=== PATIENT | female | born 1960 | race Caucasian/White ===

== ENCOUNTER 2016-09-15 19:44 | Emergency (ER) | payer MEDICAID ==
[~2016-09-15] VITALS: Ht 170.2 cm; Wt 91.0 kg
[~2016-09-15 19:44] MED LIST: AMLO10TA2 PO; HYDR25TA6 PO
[2016-09-15 21:01] VITALS: BP 166/76
== END 2016-09-15 21:04 | disposition home or self-care (01) ==
LOC: ED 20:58
DX: H60.11 Cellulitis of right external ear (principal); H60.311 Diffuse otitis externa, right ear; H69.81 Other specified disorders of Eustachian tube, right ear; R09.81 Nasal congestion
CPT/HCPCS: 99283

== ENCOUNTER 2016-10-01 16:58 | Emergency (ER) | payer MEDICAID ==
[~2016-10-01] VITALS: Ht 170.2 cm; Wt 90.7 kg
[2016-10-01 17:01] VITALS: BP 159/95
== END 2016-10-01 18:39 | disposition home or self-care (01) ==
LOC: ED 17:28
DX: H60.12 Cellulitis of left external ear (principal); Z88.6 Allergy status to analgesic agent
CPT/HCPCS: 99283

== ENCOUNTER 2016-12-25 04:30 | Emergency (ER) | payer MEDICAID ==
[~2016-12-25] VITALS: Ht 170.2 cm; Wt 90.8 kg
[2016-12-25] MEDS ORDERED: LOSA25TA5 PO (04:56)
[2016-12-25] MEDS ORDERED: ASPIRIN 81 MG TABLET CHEW ONE (05:10)
[2016-12-25] MEDS ORDERED: ONDANSETRON 2MG/ML, 2ML ONE (05:10)
[2016-12-25] MEDS ORDERED: KETOROLAC 30 MG/1 ML ONE (05:10)
[2016-12-25] MEDS ORDERED: KETOROLAC 30 MG/1 ML IVPush ONE (05:30)
[2016-12-25] MEDS ORDERED: SODIUM CHLORIDE FLUSH 10ML SYR IVF ONE (05:30)
[2016-12-25] MEDS ORDERED: ASPIRIN 81 MG TABLET CHEW PO ONE (05:30)
[2016-12-25] MEDS ORDERED: ONDANSETRON 2MG/ML, 2ML IVPush ONE (05:30)
[2016-12-25 06:06] LABS: BLOOD UREA NITROGEN 27 mg/dL (7-18)
[2016-12-25 06:12] LABS: IS PT STATUS REG ER OR PRE ER? YES
[2016-12-25 06:40] VITALS: BP 123/73
== END 2016-12-25 06:42 | disposition home or self-care (01) ==
LOC: ED 06:30
DX: R07.89 Other chest pain (principal); I10 Essential (primary) hypertension; M79.7 Fibromyalgia; Z88.1 Allergy status to other antibiotic agents
CPT/HCPCS: 36415; 71010; 80048; 82040; 83880; 84484; 85025; 93005; 99285

== ENCOUNTER 2017-06-10 07:21 | Observation (INO) | payer MEDICAID ==
[~2017-06-10] VITALS: Ht 170.2 cm; Wt 92.5 kg
[~2017-06-10 07:21] MED LIST changes: +LOSA25TA5 PO
[2017-06-10] MEDS ORDERED: FAMOTIDINE 20 MG/2 ML IVP ONE (08:00)
[2017-06-10] MEDS ORDERED: SODIUM CHLORIDE 0.9% 1,000ML IVBOLUS ONE (08:00)
[2017-06-10] MEDS ORDERED: SODIUM CHLORIDE FLUSH 10ML SYR IVF ONE (08:00)
[2017-06-10] MEDS ORDERED: ONDANSETRON 2MG/ML, 2ML IVPush ONE ×2 (08:00→10:30)
[2017-06-10] MEDS ORDERED: ONDANSETRON 2MG/ML, 2ML ONE ×3 (08:09→11:40)
[2017-06-10] MEDS ORDERED: FAMOTIDINE 20 MG/2 ML ONE (08:10)
[2017-06-10 08:14] LABS: BASOPHILS # (AUTO) 0.03 x10^3/uL (0-0.1); BASOPHILS % (AUTO) 0 % (0-1); EOSINOPHILS # (AUTO) 0.03 x10^3/uL (0-0.4); EOSINOPHILS % (AUTO) 0 % (1-7); LYMPHOCYTES # (AUTO) 0.92 x10^3/uL (1-3.4); LYMPHOCYTES % (AUTO) 6 % (22-44); MD NO; MEAN CORPUSCULAR HEMOGLOBIN 28.5 pg (27.0-34.8); MEAN CORPUSCULAR HGB CONC 33.1 g/dL (32.4-35.8); MEAN CORPUSCULAR VOLUME 86.2 fL (80-100); MEAN PLATELET VOLUME 9.3 fL (7.4-10.4); MONOCYTES # (AUTO) 0.65 x10^3/uL (0.2-0.8); MONOCYTES % (AUTO) 5 % (2-9); NEUTROPHILS # (AUTO) 12.61 x10^3/uL (1.8-6.8); NEUTROPHILS % (AUTO) 89 % (42-75); PLATELET COUNT 297 x10^3/uL (130-400)
[2017-06-10] MEDS ORDERED: LOSA25TA5 PO (08:17)
[2017-06-10] MEDS ORDERED: NAPR220C2 PO (08:17)
[2017-06-10 08:27] LABS: ALANINE AMINOTRANSFERASE 54 U/L (12-78); ANION GAP 9 mmol/L (5-15); CALCIUM 9.3 mg/dL (8.5-10.1); CHLORIDE 104 mmol/L (98-107); CREATININE 0.99 mg/dL (0.55-1.02)
[2017-06-10 08:29] LABS: ALKALINE PHOSPHATASE 185 U/L (45-117); BILIRUBIN,TOTAL 0.5 mg/dL (0.2-1.0); TOTAL PROTEIN 8.4 g/dL (6.4-8.2)
[2017-06-10 10:23] LABS: HCG UR SG 1.015 (1.003-1.030); MICROSCOPIC NOT IND
[2017-06-10 10:26] LABS: CULTURE INDICATED? NO
[2017-06-10 10:53] LABS: CLOSTRIDIUM DIFFICILE ANTIGEN NEGATIVE; CLOSTRIDIUM DIFFICILE TOXIN NEGATIVE (Negative)
[2017-06-10 11:33] LABS: AMPHETAMINE SCREEN, URINE Positive (Negative); BARBITURATE SCREEN, URINE Negative (Negative); BENZODIAZEPINE SCREEN, URINE Negative (Negative); CANNABINOID SCREEN, URINE Negative (Negative); COCAINE SCREEN, URINE Negative (Negative); METHADONE SCREEN, URINE Negative (Negative); OPIATE SCREEN, URINE Negative (Negative)
[2017-06-10] MEDS ORDERED: ENALAPRILAT 1.25 MG/ML, 2ML IVPush PRN (13:30)
[2017-06-10] MEDS ORDERED: ONDANSETRON ODT 4 MG PO PRN (13:30)
[2017-06-10] MEDS ORDERED: ACETAMINOPHEN 325 MG TABLET PO PRN (13:30)
[2017-06-10] MEDS ORDERED: hydrALAzine 20 MG/ML, 1ML IVPush PRN (13:30)
[2017-06-10] MEDS ORDERED: ZOLPIDEM 5MG TABLET PO PRN (13:30)
[2017-06-10] MEDS ORDERED: LABETALOL 5MG/ML, 20ML IVPush PRN (13:30)
[2017-06-10] MEDS ORDERED: morphine SULFATE 10 MG/ML, 1ML IVPush PRN (13:30)
[2017-06-10 14:10] LABS: FREE T4 (FREE THYROXINE) 1.32 ng/dL (0.76-1.46); THYROID STIMULATING HORMONE 4.65 mIU/L (0.358-3.740)
[2017-06-10 14:20] VITALS: BP 162/92
[2017-06-10] MEDS: ONDANSETRON 2MG/ML, 2ML IVPush PRN ×2 (15:10→22:58)
[2017-06-10] MEDS: ENOXAPARIN 40 MG/0.4 ML SQ SCH (15:10)
[2017-06-10] MEDS: NS + 20MEQ KCL 1,000 ML IV SCH (15:10)
[2017-06-10] MEDS ORDERED: ALBUTEROL SULFATE 2.5 MG/3 ML NPPB PRN (15:30)
[2017-06-10 16:55] VITALS: BP 162/92
[2017-06-10 20:10] VITALS: BP 142/82
[2017-06-11] MEDS: NS + 20MEQ KCL 1,000 ML IV SCH (00:15)
[2017-06-11 02:46] VITALS: BP 134/77
[2017-06-11 05:15] LABS: BASOPHILS # (AUTO) 0.01 x10^3/uL (0-0.1); BASOPHILS % (AUTO) 0 % (0-1); EOSINOPHILS # (AUTO) 0.01 x10^3/uL (0-0.4); EOSINOPHILS % (AUTO) 0 % (1-7); LYMPHOCYTES # (AUTO) 0.98 x10^3/uL (1-3.4); LYMPHOCYTES % (AUTO) 16 % (22-44); MD NO; MEAN CORPUSCULAR HEMOGLOBIN 29.3 pg (27.0-34.8); MEAN CORPUSCULAR HGB CONC 33.8 g/dL (32.4-35.8); MEAN CORPUSCULAR VOLUME 86.8 fL (80-100); MEAN PLATELET VOLUME 9.7 fL (7.4-10.4); MONOCYTES # (AUTO) 0.28 x10^3/uL (0.2-0.8); MONOCYTES % (AUTO) 4 % (2-9); NEUTROPHILS # (AUTO) 5.05 x10^3/uL (1.8-6.8); NEUTROPHILS % (AUTO) 80 % (42-75); PLATELET COUNT 194 x10^3/uL (130-400); RED CELL DISTRIBUTION WIDTH 13.4 % (9.6-15.2)
[2017-06-11 05:23] LABS: CHLORIDE 106 mmol/L (98-107)
[2017-06-11 05:38] LABS: ANION GAP 8 mmol/L (5-15); CALCIUM 8.3 mg/dL (8.5-10.1); CREATININE 0.92 mg/dL (0.55-1.02)
[2017-06-11] MEDS ORDERED: PANTOPRAZOLE 40 MG IV IVPush SCH (07:30)
[2017-06-11 08:15] VITALS: BP 121/72
[2017-06-11] MEDS ORDERED: MAGNESIUM SULFATE 1 GM in SODIUM CHLORIDE 0.9% 50 ML IV ONE (08:30)
[2017-06-11] MEDS ORDERED: POTASSIUM PHOSPHATE 22 MEQ in SODIUM CHLORIDE 0.9% 500 ML IV ONE (08:30)
[2017-06-11] MEDS ORDERED: LOSARTAN 25MG TABLET PO SCH (09:00)
[2017-06-11 11:20] LABS: RAPID INFLUENZA A Negative (Negative); RAPID INFLUENZA B Negative (Negative)
[2017-06-11] MEDS: ENOXAPARIN 40 MG/0.4 ML SQ SCH (13:56)
[2017-06-11 14:00] VITALS: BP 114/69
== END 2017-06-11 17:33 | disposition home or self-care (01) ==
LOC: ED 08:57 → INTOOBSV 12:36 → EDIP 12:36 → 4WST 13:40 → UNDODISIN 06-11 17:33
PROVIDERS: ADMIT Family Medicine; ATTEND Family Medicine
DX: A08.4 Viral intestinal infection, unspecified (principal); E87.6 Hypokalemia; M79.7 Fibromyalgia; R09.02 Hypoxemia; I10 Essential (primary) hypertension; F15.20 Other stimulant dependence, uncomplicated; F12.10 Cannabis abuse, uncomplicated; H69.90 Unspecified Eustachian tube disorder, unspecified ear; H60.90 Unspecified otitis externa, unspecified ear
CPT/HCPCS: 36415; 71046; 74022; 80048; 80053; 80307; 81003; 81025; 83690; 83735; 84100; 84439; 84443; 85025; 87324; 87400; 89055; 93005; 96361; 96365; 96366; 96367; 96368; 96372; 96375; 96376; 99285; C9113; G0378; J1650; J2270; J2405; J3475; J3480; J7030; J7040; Q0162; 96374; S0028

== ENCOUNTER 2017-11-14 12:18 | Emergency (ER) | payer MEDICAID ==
[~2017-11-14] VITALS: Ht 170.2 cm; Wt 93.0 kg
[~2017-11-14 12:18] MED LIST changes: +NAPR220C2 PO
[2017-11-14 12:21] VITALS: BP 174/104
[2017-11-14] MEDS ORDERED: IBUPROFEN 200 MG TABLET ONE (12:47)
[2017-11-14] MEDS ORDERED: IBUPROFEN 200 MG TABLET PO ONE (13:00)
== END 2017-11-14 13:22 | disposition home or self-care (01) ==
LOC: ED 13:17
DX: S93.411A Sprain of calcaneofibular ligament of right ankle, initial encounter (principal); S93.491A Sprain of other ligament of right ankle, initial encounter; I10 Essential (primary) hypertension; Z90.49 Acquired absence of other specified parts of digestive tract; Z91.14 Patient's other noncompliance with medication regimen; W18.39XA Other fall on same level, initial encounter; Y93.89 Activity, other specified; Y92.096 Garden or yard of other non-institutional residence as the place of occurrence of the external cause; Y99.8 Other external cause status
CPT/HCPCS: 99284